=== PATIENT | male | born 1970 | race Caucasian/White ===

== ENCOUNTER 2021-09-13 19:25 | Emergency (ER) | payer OTHER ==
[2021-09-13] MEDS ORDERED: HYDROmorphone 1 MG/ML Syringe IVPUSH ONE ×2 (19:47→20:54)
[2021-09-13] MEDS ORDERED: Ondansetron 4 MG/2 ML SDV IVPUSH ONE (19:47)
--- NOTE | 2021-09-13 19:52 | EDM.PDOC ---
ED HPI GENERAL MEDICAL PROBLEM - General Chief Complaint: Trauma Stated Complaint: MAULED BY A COW/SHOULDER AND HEAD INJURY Time Seen by Provider: 09/13/21 19:28 Source of Information: Reports: Patient History Limitations: Reports: No Limitations - History of Present Illness INITIAL COMMENTS - FREE TEXT/NARRATIVE: A trauma alert was called for this patient. Mr. Kennedy is a very pleasant 59-year-old gentleman who is now brought to the ED after being trampled by a cow in a loading chute around 19:00 this evening. He suffered a cut to his forehead, and is complaining of pain to his right shoulder and right knee. He states that he was dazed, but was not knocked unconscious. He states that he has a headache. The patient states that he last ate around 17:00. Here in the ED, the patient is found to be hemodynamically stable, afebrile, saturating 96% on room air. He appears to be uncomfortable, primarily complaining of right shoulder pain, although in no acute distress. Prior to gladisight's injury, the patient denies having a recent fever, chills, sore throat, ear pain, nasal or sinus congestion, cough, dyspnea, chest pain, palpitations, nausea, vomiting, constipation, diarrhea, abdominal pain, urinary symptoms, recent weight gain or weight loss, recent bloody bowel movements or black bowel movements, recent joint aches, headaches, or rashes. The patient's PCP is Dr. Gloria Barnett, in [place]. He has not received a COVID vaccination, nor an influenza vaccination this season. Right Shoulder Pain Score (Numeric/FACES): 10 Head Pain Score (Numeric/FACES): 3 Right Leg Pain Score (Numeric/FACES): 8 - Related Data Allergies Allergy/AdvReac Type Severity Reaction Status Date / Time codeine Allergy Hives Verified 09/13/21 19:50 Penicillins Allergy Hives Verified 09/13/21 19:50 Past Medical History HEENT History: Reports: Other (See Below) (Edentulous) Endocrine/Metabolic History: Reports: Hypothyroidism - Infectious Disease History Infectious Disease History: Reports: Novel Coronavirus (dx'd around ) - Past Surgical History HEENT Surgical History: Reports: Oral Surgery (dental extractions), Other (See Below) (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 Left hand tendon repair.) Social & Family History - Tobacco Use Tobacco Use Status *Q: Former Tobacco User Tobacco Use Within Last Twelve Months: Smokeless Tobacco (Chews 1 can/wk) Years of Tobacco use: 13 Packs/Tins Daily: 0.5 Month/Year Tobacco Last Used: Quit 2000 Tobacco Use Comment: Started smoking 1987 - Alcohol Use Alcohol Use History: No - Recreational Drug Use Recreational Drug Use: Yes Drug Use in Last 12 Months: No Recreational Drug Type: Reports: Marijuana/Hashish (last smoked around 2000) - Living Situation & Occupation Living situation: Reports: , with Spouse, with Family (12 yr old son) Occupation: Employed (hack driver) Review of Systems - Review of Systems Review Of Systems: Comprehensive ROS is negative, except as noted in HPI. ED EXAM, GENERAL - Physical Exam Exam: See Below Exam Limited By: No Limitations General Appearance: Alert, WD/WN, Mild Distress (appears uncomfortable) Eye Exam: Bilateral Eye: EOMI, Normal Inspection Ears: Normal External Exam, Normal Canal, Hearing Grossly Normal, Normal TMs Nose: Normal Inspection, Normal Mucosa, No Blood Throat/Mouth: Normal Inspection, Normal Lips, Normal Teeth, Normal Gums, Normal Oropharynx, Normal Voice, No Airway Compromise Head: Normocephalic, Other (Approximately 3 cm irregular partial-thickness laceration just medial to the left eyebrow) Neck: Normal Inspection, Supple, Non-Tender, Full Range of Motion Respiratory/Chest: No Respiratory Distress, Lungs Clear, Normal Breath Sounds, No Accessory Muscle Use, Chest Non-Tender Cardiovascular: Normal Peripheral Pulses, Regular Rate, Rhythm, No Edema, No Gallop, No JVD, No Murmur, No Rub Peripheral Pulses: 3+: Radial (L), Radial (R) GI/Abdominal: Normal Bowel Sounds, Soft, Non-Tender, No Organomegaly, No Distention, No Abnormal Bruit, No Mass Back Exam: Normal Inspection, Full Range of Motion, NT Extremities: No Pedal Edema, Normal Capillary Refill, Other (Elevation at the right AC joint with tenderness, suggestive of an AC separation. Abrasions to the proximal anterior and lateral right leg. No deformities. Right leg nontender outside of the areas of abrasion.) Neurological: Alert, Oriented, CN II-XII Intact, Normal Cognition, No Motor/Sensory Deficits Psychiatric: Normal Affect Skin Exam: Warm, Dry, Intact, Normal Color, No Rash ED TRAUMA PROCEDURES - Laceration/Wound Repair Left Forehead Lac/Wound Length In cm: 3.0 Appearance: Irregular Skin Prep: Saline Exploration/Debridement/Repair: Wound Explored, In a Bloodless Field, Explored to Base, No Foreign Material Found Closed With: Dermabond Sterile Dressing Applied: None Tetanus Status Addressed: Yes Complications: No Course - Vital Signs Last Recorded V/S: Last Vital Signs Temp 36.2 C 09/13/21 19:34 Pulse 71 09/13/21 22:02 Resp 15 09/13/21 22:02 BP 129/67 09/13/21 22:02 Pulse Ox 96 09/13/21 22:02 - Orders/Labs/Meds Orders: Active Orders 24 hr Category Date Time Status DME for Discharge [COMM] Stat Oth 09/13/21 20:57 Ordered Meds: Medications Discontinued Medications Generic Name Dose Route Start Last Admin Trade Name Brandon PRN Reason Stop Dose Admin Hydromorphone HCl 1 mg 09/13/21 19:47 09/13/21 19:50 Hydromorphone 1 Mg/Ml Syringe IVPUSH 09/13/21 19:48 1 mg ONETIME ONE Administration Hydromorphone HCl 1 mg 09/13/21 20:54 09/13/21 21:10 Hydromorphone 1 Mg/Ml Syringe IVPUSH 09/13/21 20:55 1 mg ONETIME ONE Administration Sodium Chloride 1,000 mls @ 150 mls/hr 09/13/21 20:00 09/13/21 20:10 Normal Saline IV 150 mls/hr ASDIRECTED ILANA Administration Ibuprofen 600 mg 09/13/21 21:28 09/13/21 21:33 Ibuprofen 600 Mg Tab PO 09/13/21 21:29 600 mg ONETIME ONE Administration Ondansetron HCl 4 mg 09/13/21 19:47 09/13/21 20:10 Ondansetron 4 Mg/2 Ml Sdv IVPUSH 09/13/21 19:48 4 mg ONETIME ONE Administration - Re-Assessments/Exams Free Text/Narrative Re-Assessment/Exam: 09/13/21 19:48 I have ordered a CT of the head without contrast, x-rays of the right shoulder, and x-rays of the right knee and right tib/fib. In the meantime, the patient will be treated with IV Dilaudid, IV Zofran, and IV fluid. 09/13/21 20:35 CT of the head without contrast is read by Dr. Potter as: 1. Nothing acute is seen on noncontrast head CT study. 3-view radiographs of the right shoulder are read by Dr. Potter as: 1. Acromioclavicular separation and probable tear within the coracoclavicular ligament. 2. Mild inferior spurring off the distal clavicle. 3. Right shoulder study is otherwise unremarkable. AP and lateral views of the right knee are read by Dr. Potter as: 1. Nothing acute is seen on 2-view right knee exam. AP and lateral views of the right tibia and fibula are read by Dr. Potter as: 1. Nothing acute is seen on 2-view right tibia and fibula study. 09/13/21 20:[address] William at 20:55. He reviewed the x-ray images of the patient's shoulder. He agrees that there is Type III A-C separation. He stated that he 95% of these cases, an operation is not necessary. He recommended that we place the patient into a shoulder sling, which he will need to be in for 6 weeks, after which he will be referred to physical therapy. The patient is not to raise his right arm beyond 90 degrees. He may apply ice packs to it, and take NSAIDs. He would like to see the patient in his clinic in 2 weeks. 09/13/21 21:[address] William discussed with the patient. He states that he lives [place] lot closer to [place], therefore we will have him follow-up at [facility] in [place] in 2 weeks. I will discharge him home with an [facility] prescription for Belzoni. I applied Dermabond across the laceration to the patient's face. He tolerated the procedure well. Departure - Departure Time of Disposition: 21:11 Disposition: Home, Self-Care 01 Condition: Good Clinical Impression: Forehead laceration, Separation of right acromioclavicular joint, type 3, Abrasion of right leg - Discharge Information *PRESCRIPTION DRUG MONITORING PROGRAM REVIEWED*: Not Applicable *COPY OF PRESCRIPTION DRUG MONITORING REPORT IN PATIENT [place]: Not Applicable Instructions: Acromioclavicular Separation, Laceration Care, Adult, [id number], Abrasion, [id number] Referrals: Gloria Barnett MD [Ordering Only Provider] - Forms: ED Department Discharge Additional Instructions: You were seen in the emergency room after being trampled by a cow. Work-up in the ER included a CT scan of your head, along with x-rays of your right shoulder, your right knee, and your right leg. The x-rays of your right shoulder show that you have an acromioclavicular (A-C) separation, but no broken bones. The CT scan of your head, and the x-rays of your right knee and right leg were unremarkable. The laceration to your forehead was closed with Dermabond. You may bathe as normal, however, do not pick at the glue. Allow it to flake off on its own over the next week. You have been placed into a right arm sling. You need to wear this continuously, when not in bed. We recommend you apply an ice pack to the top of your right shoulder several times a day, for several days, to help minimize swelling. We recommend you take [id number] ibuprofen, 3 tablets (600 mg) up to every 8 hours, with food, [id number] initially, then as needed for discomfort. A prescription for the opioid pain reliever Belzoni has been provided to you via [facility]. You may take 1 to 2 tablets of Belzoni up to every 6 hours, as needed for pain not relieved by ibuprofen. If you take Belzoni, do not drive or operate heavy machinery for 12 hours afterwards. Belzoni may cause constipation, so consider taking a stool softener. Follow-up at [facility] in 2 weeks. Please call [phone] tomorrow, to make an appointment. If any other problems, please do not hesitate to return to the ER. Sepsis Event Note (ED) - Evaluation Sepsis Screening Result: No Definite Risk - Focused Exam Vital Signs: Vital Signs Temp Pulse Resp BP Pulse Ox 09/13/21 22:02 71 15 129/67 96 09/13/21 19:34 36.2 C 67 20 131/80 - My Orders Last 24 Hours: My Active Orders 09/13/21 20:57 DME for Discharge [COMM] Stat - Assessment/Plan Last 24 Hours: My Active Orders 09/13/21 20:57 DME for Discharge [COMM] Stat
[2021-09-13] MEDS ORDERED: Sodium Chloride 0.9% 1,000 ML IV SCH (20:00)
--- NOTE | 2021-09-13 20:27 | CR ---
Right shoulder: 3 views of the right shoulder were obtained. Comparison: No prior shoulder study is available. Distal clavicle is elevated in relation to the acromion process compatible with acromioclavicular separation. There is also likely a tear within the coracoclavicular ligament. Slight inferior spurring is seen off the distal clavicle. Glenohumeral joint is within normal limits. No additional abnormality is seen. Impression: 1. Acromioclavicular separation and probable tear within the coracoclavicular ligament. 2. Mild inferior spurring off the distal clavicle. 3. Right shoulder study is otherwise unremarkable. Diagnostic code #3
--- NOTE | 2021-09-13 20:27 | CR ---
Right tibia and fibula: AP and lateral views of the right tibia and fibula were obtained. Comparison: No prior tibia or fibula study is available. No fracture or other bony abnormality is seen. Impression: 1. Nothing acute is seen on 2-view right tibia and fibula study. Diagnostic code #1
--- NOTE | 2021-09-13 20:27 | CR ---
Right knee: AP and lateral views of the right knee were obtained. Comparison: No prior knee study is available. Medial and lateral joint spaces are maintained in height. No joint effusion is seen. No fracture or other bony abnormality is seen. Impression: 1. Nothing acute is seen on 2-view right knee exam. Diagnostic code #1
--- NOTE | 2021-09-13 20:29 | CT ---
Head CT Technique: Multiple axial sections through the brain were obtained. Intravenous contrast was not utilized. Reconstructed coronal and sagittal images were obtained. Comparison: No prior head CT study is available. Findings: Ventricles along with basal cisterns and sulci over the convexities are within normal limits for the patient's age. No abnormal parenchymal densities are seen. No evidence of intracranial hemorrhage is seen. No midline shift or mass-effect is seen. Bone window settings were reviewed. Visualized mastoid sinuses and paranasal sinuses show nothing acute. No acute calvarial finding is seen. Impression: 1. Nothing acute is seen on noncontrast head CT study. Diagnostic code #1
[2021-09-13] MEDS ORDERED: Ibuprofen 600 MG Tab PO ONE (21:28)
== END 2021-09-13 22:00 | disposition home or self-care (01) ==
LOC: JD.ED 19:25
DX: S43.101A Unspecified dislocation of right acromioclavicular joint, initial encounter (principal); S01.81XA Laceration without foreign body of other part of head, initial encounter; S80.811A Abrasion, right lower leg, initial encounter; Z88.5 Allergy status to narcotic agent; Z88.0 Allergy status to penicillin; Z87.891 Personal history of nicotine dependence; W55.29XA Other contact with cow, initial encounter; Y92.89 Other specified places as the place of occurrence of the external cause
CPT/HCPCS: 12013; 70450; 73030; 73560; 73590; 96374; 96375; 96376; 99284; A9270; J1170; J2405; J7030